=== PATIENT | female | born 1950 | race Caucasian/White ===

== ENCOUNTER 2018-10-14 17:50 | Inpatient (IN) ==
[2018-10-14 19:06] LABS: Hematocrit 35.8 % (37.0-47.0); Hemoglobin 11.5 gm/dL (12.5-16.0); Mean Cell Volume 99.7 fl (78-100); Mean Corpuscular Hgb Conc 32.1 g/dl (32-36); Mean Platelet Volume 10.5 fl (8-12.5); Neutrophil # 4.1 K/mm3 (1.3-6.0); Neutrophil % 71.4 % (42-75.0); Platelet Count 206 K/mm3 (150-450); Red Blood Count 3.59 M/mm3 (4.2-5.4); Red Cell Distribution Width 13.4 % (11.5-14.0); White Blood Count 5.8 K/mm3 (4.0-10.5)
[2018-10-14 19:47] LABS: BUN/Creatinine Ratio 20.1 (9.0-21.6); Potassium 4.4 mmol/L (3.4-4.6)
[2018-10-14 19:48] LABS: Albumin * 3.6 gm/dl (3.4-5.0); Anion Gap 10.6 mmol/L (6.8-13.8); Bilirubin, Total 0.1 mg/dL (0.0-1.1); Ca. Corrected For Albumin 9.6 mg/dL (8.4-10.2); Calcium * 9.6 mg/dL (7.9-10.9); Carbon Dioxide 30.8 mmol/L (24-32.6)
--- NOTE | 2018-10-14 20:01 | ERNOTE ---
Neuro HPI ER Record Date of Service: 10/14/18 Presenting Symptoms: confusion Time Seen by Provider: 10/14/18 18:29 Source: patient, family, RN notes reviewed Exam Limitations: no limitations Immunizations: IMMUNIZATION HX Immunizations Up to Date Yes History of Influenza Vaccine No Hx Pneumococcal Vaccination Yes Allergies/Adverse Reactions: Allergies Allergy/AdvReac Type Severity Reaction Status Date / Time penicillin V potassium Allergy Severe breathing Verified 10/14/18 18:23 [From Pen-Vee K] issues Sulfa (Sulfonamide Allergy Severe Verified 10/14/18 18:23 Antibiotics) [Sulfa(Sulfonamide Antibiotics)] azithromycin Allergy Intermediate breathing Verified 10/14/18 18:23 issues sucralfate Allergy Shortness Verified 10/14/18 18:23 of Breath sulfamethoxazole Allergy Unknown Verified 10/14/18 18:23 [From Bactrim] trimethoprim [From Bactrim] Allergy Unknown Verified 10/14/18 18:23 aspirin AdvReac GI Upset Verified 10/14/18 18:23 Home Medications: HOME MEDICATIONS caffeine 200 mg tablet 200 mg PO DAILY tab 03/29/18 [Last Taken Unknown] calcium carbonate 600 mg (1,500 mg)-vitamin D3 400 unit tablet 2 tab PO DAILY tab 03/29/18 [Last Taken Unknown] echinacea 380 mg capsule 380 mg PO DAILY 03/29/18 [Last Taken Unknown] fexofenadine 180 mg tablet 180 mg PO DAILY 03/29/18 [Last Taken Unknown] ipratropium-albuterol 18 mcg-103 mcg/actuation aerosol inhaler 2 spray IH QID 03/29/18 [Last Taken Unknown] levothyroxine 50 mcg tablet 50 mcg PO DAILY #90 tab 07/01/18 [Last Taken Unknown] alprazolam 0.5 mg tablet 0.5 mg PO TID PRN #90 tab 07/09/18 [Last Taken Unknown] mirtazapine 7.5 mg tablet 7.5 mg PO HS PRN #30 tab 07/09/18 [Last Taken Unknown] losartan 100 mg tablet 50 mg PO DAILY #45 tab 07/20/18 [Last Taken Unknown] simvastatin 20 mg tablet 20 mg PO HS #90 tab 07/20/18 [Last Taken Unknown] metoprolol succinate ER 100 mg tablet,extended release 24 hr 100 mg PO DAILY #90 tab 07/21/18 [Last Taken Unknown] albuterol sulfate HFA 90 mcg/actuation aerosol inhaler 1 puff IH Q6H PRN #18 g 09/10/18 [Last Taken Unknown] fluticasone 110 mcg/actuation HFA aerosol inhaler 1 puff IH BID #12 g 09/10/18 [Last Taken Unknown] hydrocodone 5 mg-acetaminophen 325 mg tablet 1 tab PO PRN PRN #30 tab 09/10/18 [Last Taken Unknown] - Pain Score Pain Score #1 Pain Score: 0 - History of Present Illness Narrative: The patient is a 68 year old female who presents for difficulty with speech and confusion which has been present since 1200. There are no associated symptoms. The patient denies pain. There are no alleviating factors. There are no aggravating factors. Previous treatments have included: none. The past medical history includes: anxiety, asthma, chronic pain, depression, GERD, HTN, HLD, hypothyroid and migraine. The social history is positive for former smoker. The patient has had no ill contacts. Patient's sister called EMS after she was talking on the phone and her sister was unable to verbally communicate. Patient upon arrival during triage having difficulty to verbalize. Upon assessment patient appears resolved with slight garbled speech. Review of Systems - Review of Systems Constitutional: Present: no symptoms reported. Absent: recent illness, fever, fatigue EYE: Present: no symptoms reported ENT: Present: no symptoms reported. Absent: ear pain, nasal drainage, sore throat Respiratory: Present: no symptoms reported. Absent: shortness of breath, cough Cardiology: Present: no symptoms reported. Absent: chest pain Gastrointestinal/Abdominal: Present: no symptoms reported. Absent: nausea, vomiting, diarrhea, abdominal pain Genitourinary: Present: no symptoms reported. Absent: dysuria Musculoskeletal: Present: no symptoms reported Skin: Present: no symptoms reported Neurological: Present: no symptoms reported Endocrine: Present: no symptoms reported Hematologic/Lymphatic: Present: no symptoms reported Psych: Present: no symptoms reported All Other Systems: All systems neg except as marked Medical History (Last Reviewed 10/14/18 @ 20:46 by PRAKASH Sahu) Major depression (Chronic) Generalized anxiety disorder (Chronic) Abdominal pain, generalized Anxiety disorder Asthma Benign breast cyst in female Bronchitis Chronic pain syndrome Depression Gallbladder disorder Gastroesophageal reflux Headache Heart murmur Hyperlipidemia Hypertension Hypothyroidism Migraine Peptic ulcer disease Shortness of breath Vertigo, central Chest pain UTI (urinary tract infection) Surgical History: Surgical History (Last Reviewed 10/14/18 @ 20:46 by PRAKASH Sahu) History of appendectomy Onset Date: Unknown History of tonsillectomy Onset Date: Unknown Family History: Family History (Last Reviewed 10/14/18 @ 20:46 by PRAKASH Sahu) Father Cancer Mother Hypertension Heart disease COPD (chronic obstructive pulmonary disease) Social History: Preferred Language Setswana Smoking Status Former smoker Psych History Hx of Anxiety,Hx of Depression (Last Updated 09/23/18 @ 16:24 by Rianna Rain MD) No Social History Section defined Physical Exam - Physical Exam General Appearance: Present: wd/wn, alert, no apparent distress Head Exam: Present: normal inspection, no evidence of injury Eye Exam: Normal inspection: bilateral, PERRL: bilateral, EOMI: bilateral Neck: Present: normal inspection Respiratory: Present: normal breath sounds, no accessory muscle use, lungs clear Cardiovascular/Chest: Present: regular rate, rhythm, no murmur Peripheral Pulses: N=norm/S=strong/W=weak/B=bound/A=absent: Radial (R): Normal Gastrointestinal/Abdominal: Present: normal bowel sounds, nontender, nondistended, soft, no organomegaly Neurological Exam: Present: oriented, normal mood/affect, no motor/sensory deficits, 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-XII nml as tested, normal cerebellar test, other - right upper lip appears swollen, no facial droop, speech slight garbled Skin Exam: Present: normal color, warm/dry Baljit Coma Scale - Assess Eye Opening: Spontaneous Motor: Obeys Commands Verbal: Oriented - Total Coma Scale Total: 15 Initial Stroke Assessment - NIH Stroke Scale Level of Consciousness: Alert LOC Questions (Year and Age): Answers both correctly LOC Commands (open/close eyes/fist): Performs both correctly Lateral Gaze Paresis: None Visual Field Loss: No visual loss Facial Palsy: Normal movement Right Arm Motor (10 sec hold): No drift Left Arm Motor (10 sec hold): No drift Right Leg Motor (5 sec hold): No drift Left Leg Motor (5 sec hold): No drift Limb Ataxia (finger/nose heel/abdi): Absent Sensory Loss (pinprick arms/legs/face): No sensory loss Language Aphasia (description/naming/reading): No aphasia; normal Dysarthria (speech clarity): Slurring, intelligeble Neglect Inattention (visual/tactile/auditory/spatial/person): No neglect Initial Stroke Scale Score:: 1 Progress - Date and Time Seen: Date and Time: 10/14/18 21:31 Patient remains to have no neuro deficits and clear speech. Discussed case with and will admit for observation due to TIA. Patient lives alone. - Results and Orders Patient's Lab Results:: I have reviewed the patient's lab results. - Vital Signs Patient's Vital Signs:: I have reviewed the patient's vital signs. Vital Signs: Vital Signs 10/14/18 18:21 10/14/18 18:57 10/14/18 19:48 Temperature 36.4 C 36.8 C 36.5 C Pulse Rate 70 69 Respiratory Rate 15 16 18 Blood Pressure 188/68 H 200/69 H O2 Sat by Pulse Oximetry 97 97 99 - EKG EKG #1 EKG: NSR EKG read: Reviewed by me - X-Ray X-Ray #1 X-Ray: chest Interpretation: Reviewed by me X-ray Comments: No acute cardiopulmonary abnormalities. Reviewed with . - Progress/Reassessment Chief Complaint: Altered Mental Status Progress:: Improved Departure Clinical Impression: TIA (transient ischemic attack) - Departure Disposition: Still a patient Condition: Good
[2018-10-14 20:27] LABS: Partial Thrombolplastin Time 23.5 Seconds (24-32)
[2018-10-14 21:28] LABS: Urine Bilirubin Negative (NEGATIVE); Urine Blood 25 /ul (NEGATIVE); Urine Ketone Negative (NEGATIVE); Urine Nitrite Negative (NEGATIVE); Urine Protein Negative (NEGATIVE); Urine Urobilinogen Normal (NORMAL)
[2018-10-14 21:43] LABS: Urine Appearance Clear (CLEAR); Urine Bacteria None Seen; Urine Color Pale Yellow; Urine RBC None Seen /hpf (0-5); Urine WBC TRACE /hpf (0-5)
[2018-10-14] MEDS ORDERED: ALBUTEROL SULFATE 200 PUFF INHALER IH PRN (21:53)
[2018-10-14] MEDS: ALBUTEROL SULFATE/IPRATROPIUM 3 ML NEBU IH SCH (22:31)
[2018-10-14] MEDS: BUDESONIDE 0.5 MG/2 ML VIAL.NEB IH SCH (22:31)
[2018-10-14] MEDS: SIMVASTATIN 20 MG TABLET PO SCH (22:54)
[2018-10-15] MEDS ORDERED: LOSARTAN POTASSIUM 50 MG TABLET ONE (01:04)
[2018-10-15] MEDS ORDERED: METOPROLOL SUCCINATE 50 MG TABLET.SA PO ONE (01:04)
[2018-10-15] MEDS ORDERED: METOPROLOL SUCCINATE 100 MG TABLET.SA PO ONE (01:05)
[2018-10-15] MEDS ORDERED: hydrALAZINE HCL 20 MG/ML VIAL IV ONE (04:40)
[2018-10-15] MEDS: ALBUTEROL SULFATE/IPRATROPIUM 3 ML NEBU IH SCH ×4 (06:05→18:33)
[2018-10-15] MEDS: BUDESONIDE 0.5 MG/2 ML VIAL.NEB IH SCH ×2 (06:14→18:34)
[2018-10-15] MEDS: LEVOTHYROXINE SODIUM 50 MCG TABLET PO SCH (06:51)
[2018-10-15] MEDS ORDERED: ALBUTEROL SULFATE 2.5 MG/0.5 ML VIAL.NEB IH PRN (07:00)
[2018-10-15] MEDS ORDERED: MIRTAZAPINE 15 MG TABLET PO PRN (07:08)
[2018-10-15] MEDS ORDERED: CLOPIDOGREL BISULFATE 75 MG TABLET PO ONE (07:09)
[2018-10-15] MEDS ORDERED: ACETAMINOPHEN 325 MG TABLET PO PRN (07:52)
--- NOTE | 2018-10-15 07:55 | HP ---
Chief Complaint - Chief Complaint Date of Service: 10/15/18 Time of Service: 07:54 Chief Complaint: garbled speech History of Present Illness: Lamar Ashford, is a 68-year-old white female, with past medical history of hypertension, hyperlipidemia,, hypothyroidism, asthma who was admitted on 10/14/13 because of difficulty of speech and confusion. The patient was in her usual self until about noontime on the day of admission who was noticed by her sister, who she was talking on the phone, to be having difficulty communicating with her verbally. EMS was called and upon arrival the patient was having difficulty of communicating with thme. In the ED she was having some garbled speech which eventually resolved. Her head CT scan showed no acute intracranial process except for mild chronic ischemic changes and mild cerebral volume loss. She was then admitted for observation. She cannot tolerate aspirin due to severe GI upset. She is currently awake alert oriented 3 and eating breakfast without choking. Her speech is back to normal. Medical History (Last Reviewed 10/14/18 @ 21:51 by Catrina Patton RN) Major depression (Chronic) Generalized anxiety disorder (Chronic) Abdominal pain, generalized Anxiety disorder Asthma Benign breast cyst in female Bronchitis Chronic pain syndrome Depression Gallbladder disorder Gastroesophageal reflux Headache Heart murmur Hyperlipidemia Hypertension Hypothyroidism Migraine Peptic ulcer disease Shortness of breath Vertigo, central Chest pain UTI (urinary tract infection) Surgical History: Surgical History (Last Reviewed 10/14/18 @ 21:51 by Catrina Patton RN) History of appendectomy Onset Date: Unknown History of tonsillectomy Onset Date: Unknown Family History: Family History (Last Reviewed 10/14/18 @ 21:51 by Catrina Patton RN) Father Cancer Mother Hypertension Heart disease COPD (chronic obstructive pulmonary disease) Social History: Patient Lives/Resources Home Utilized Preferred Language Croatian Do you have any zoroastrianism or No cultural preference? Smoking Status Former smoker Have you smoked in the past 12 No months Do you dip or chew tobacco No Psych History Hx of Anxiety,Hx of Depression (Last Updated 09/23/18 @ 16:24 by Rianna Rain MD) No Social History Section defined Review Of Systems (GEN) - Review of Systems Generalized/Overall Review: Absent: Weakness, Chills, Fever EENTM: Absent: Blurred Vision Respiratory: Absent: Cough, Shortness of Breath Cardiac: Absent: Chest Pain, Edema, Palpitations Abdominal: Absent: Nausea, Vomiting Genitourinary: Absent: Urgency, Frequency Musculoskeletal: Present: Joint Pain Neurological: Present: Anxiety. Absent: Headache, Depressed Skin: Absent: Rash, Bruising Endocrine: Absent: Intolerance to Cold, Intolerance to Heat Immunizations: IMMUNIZATION HX Immunizations Up to Date Yes History of Influenza Vaccine No Hx Pneumococcal Vaccination Yes Allergies/Adverse Reactions: Allergies Allergy/AdvReac Type Severity Reaction Status Date / Time penicillin V potassium Allergy Severe breathing Verified 10/14/18 18:23 [From Pen-Vee K] issues Sulfa (Sulfonamide Allergy Severe Verified 10/14/18 18:23 Antibiotics) [Sulfa(Sulfonamide Antibiotics)] azithromycin Allergy Intermediate breathing Verified 10/14/18 18:23 issues sucralfate Allergy Shortness Verified 10/14/18 18:23 of Breath sulfamethoxazole Allergy Unknown Verified 10/14/18 18:23 [From Bactrim] trimethoprim [From Bactrim] Allergy Unknown Verified 10/14/18 18:23 aspirin AdvReac GI Upset Verified 10/14/18 18:23 Home Medications: HOME MEDICATIONS caffeine 200 mg tablet 200 mg PO DAILY tab 03/29/18 [Last Taken Unknown] calcium carbonate 600 mg (1,500 mg)-vitamin D3 400 unit tablet 2 tab PO DAILY tab 03/29/18 [Last Taken Unknown] echinacea 380 mg capsule 380 mg PO DAILY 03/29/18 [Last Taken Unknown] fexofenadine 180 mg tablet 180 mg PO DAILY 03/29/18 [Last Taken Unknown] ipratropium-albuterol 18 mcg-103 mcg/actuation aerosol inhaler 2 spray IH QID 03/29/18 [Last Taken Unknown] levothyroxine 50 mcg tablet 50 mcg PO DAILY #90 tab 07/01/18 [Last Taken Unknown] alprazolam 0.5 mg tablet 0.5 mg PO TID PRN #90 tab 07/09/18 [Last Taken Unknown] mirtazapine 7.5 mg tablet 7.5 mg PO HS PRN #30 tab 07/09/18 [Last Taken Unknown] losartan 100 mg tablet 50 mg PO DAILY #45 tab 07/20/18 [Last Taken Unknown] simvastatin 20 mg tablet 20 mg PO HS #90 tab 07/20/18 [Last Taken Unknown] metoprolol succinate ER 100 mg tablet,extended release 24 hr 100 mg PO DAILY #90 tab 07/21/18 [Last Taken Unknown] albuterol sulfate HFA 90 mcg/actuation aerosol inhaler 1 puff IH Q6H PRN #18 g 09/10/18 [Last Taken Unknown] fluticasone 110 mcg/actuation HFA aerosol inhaler 1 puff IH BID #12 g 09/10/18 [Last Taken Unknown] hydrocodone 5 mg-acetaminophen 325 mg tablet 1 tab PO PRN PRN #30 tab 09/10/18 [Last Taken Unknown] Exam - Exam Vital Signs: Vital Signs - Last Taken Temp 36.9 C 10/15/18 05:00 Pulse 72 10/15/18 06:14 Resp 20 10/15/18 06:14 BP 198/78 H 10/15/18 05:00 Pulse Ox 99 10/15/18 06:05 Constitutional: Present: Alert, Oriented x3, Cooperative ENT Exam: Present: hearing grossly normal Eye Exam: bilateral eye: normal inspection, PERRL, EOMI Neck: Present: supple Respiratory: Present: decreased breath sounds, No rales, No wheezing Cardiovascular/Chest: Present: regular rate, rhythm, no JVD, no murmur Abdomen: Present: Normal bowel sounds, soft, nontender, nondistended Extremity: Present: no pedal edema, no calf tenderness Neurologic: Present: semiconductor packages tester II-XII nml as tested, no motor/sensory deficits, oriented x 3 Diagnostic Studies: Abnormal Lab Results 10/14/18 10/14/18 10/14/18 Range/Units 18:45 18:45 18:45 RBC 3.59 L (4.2-5.4) M/mm3 Hgb 11.5 L (12.5-16.0) gm/dL Hct 35.8 L (37.0-47.0) % MCH 32.0 H (27-31) pg Lymphocytes % 18.3 L (20-51) % Lymphocytes # 1.06 L (1.5-3.5) k/mm3 ESR 56 H (0-15) mm/hr PTT ([place]) 23.5 L (24-32) Seconds Sodium (132-142) mmol/L Plasma Sodium (130-142) mmol/L BUN (3-23) mg/dL Est GFR (Non-Af Amer) (60-130) mL/min Urine Blood (NEGATIVE) /ul Ur Leukocyte Esterase (NEGATIVE) /ul Urine WBC (0-5) /hpf 10/14/18 10/14/18 Range/Units 18:45 21:22 RBC (4.2-5.4) M/mm3 Hgb (12.5-16.0) gm/dL Hct (37.0-47.0) % MCH (27-31) pg Lymphocytes % (20-51) % Lymphocytes # (1.5-3.5) k/mm3 ESR (0-15) mm/hr PTT ([place]) (24-32) Seconds Sodium 143 H (132-142) mmol/L Plasma Sodium 143 H (130-142) mmol/L BUN 28 H (3-23) mg/dL Est GFR (Non-Af Amer) 40 L (60-130) mL/min Urine Blood 25 H (NEGATIVE) /ul Ur Leukocyte Esterase 25 H (NEGATIVE) /ul Urine WBC Trace H (0-5) /hpf Laboratory Results WBC 5.8 K/mm3 (4.0-10.5) 10/14/18 18:45 RBC 3.59 M/mm3 (4.2-5.4) L 10/14/18 18:45 Hgb 11.5 gm/dL (12.5-16.0) L 10/14/18 18:45 Hct 35.8 % (37.0-47.0) L 10/14/18 18:45 MCV 99.7 fl (78-100) 10/14/18 18:45 MCH 32.0 pg (27-31) H 10/14/18 18:45 MCHC 32.1 g/dl (32-36) 10/14/18 18:45 RDW 13.4 % (11.5-14.0) 10/14/18 18:45 Plt Count 206 K/mm3 (150-450) 10/14/18 18:45 MPV 10.5 fl (8-12.5) 10/14/18 18:45 Immature Gran % (Auto) 0.30 % (0.001-0.429) 10/14/18 18:45 Immature Gran # (Auto) 0.02 K/mm3 (0.000-0.0310) 10/14/18 18:45 Neutrophils % 71.4 % (42-75.0) 10/14/18 18:45 Lymphocytes % 18.3 % (20-51) L 10/14/18 18:45 Monocytes % 7.6 % (0.0-9) 10/14/18 18:45 Eosinophils % 2.1 % (0.0-3.0) 10/14/18 18:45 Basophils % 0.3 % (0.0-1.0) 10/14/18 18:45 Nucleated RBC % 0.0 k/mm3 (0-1) 10/14/18 18:45 Neutrophils # 4.1 K/mm3 (1.3-6.0) 10/14/18 18:45 Lymphocytes # 1.06 k/mm3 (1.5-3.5) L 10/14/18 18:45 Monocytes # 0.4 k/mm3 (0.0-1.0) 10/14/18 18:45 Eosinophils # 0.1 k/mm3 (0.0-0.7) 10/14/18 18:45 Absolute Basophils 0.0 k/mm3 (0.0-0.1) 10/14/18 18:45 ESR 56 mm/hr (0-15) H 10/14/18 18:45 PT 10.0 Seconds (9.0-11.0) 10/14/18 18:45 INR (Anticoag Therapy) 1.00 INR (0.90-1.10) 10/14/18 18:45 PTT ([place]) 23.5 Seconds (24-32) L 10/14/18 18:45 Sodium 143 mmol/L (132-142) H 10/14/18 18:45 Plasma Sodium 143 mmol/L (130-142) H 10/14/18 18:45 Potassium 4.4 mmol/L (3.4-4.6) 10/14/18 18:45 Chloride 106 mmol/L (97-106) 10/14/18 18:45 Carbon Dioxide 30.8 mmol/L (24-32.6) 10/14/18 18:45 Anion Gap 10.6 mmol/L (6.8-13.8) 10/14/18 18:45 BUN 28 mg/dL (3-23) H 10/14/18 18:45 Creatinine 1.39 mg/dL (0.4-1.4) 10/14/18 18:45 Est GFR (Non-Af Amer) 40 mL/min (60-130) L 10/14/18 18:45 BUN/Creatinine Ratio 20.1 (9.0-21.6) 10/14/18 18:45 Random Glucose 102 mg/dL (70-110) 10/14/18 18:45 Calcium 9.6 mg/dL (7.9-10.9) 10/14/18 18:45 Calcium Adj for Albumin 9.6 mg/dL (8.4-10.2) 10/14/18 18:45 Total Bilirubin 0.1 mg/dL (0.0-1.1) 10/14/18 18:45 AST 19 U/L (0-48) 10/14/18 18:45 ALT 19 U/L (19-67) 10/14/18 18:45 Alkaline Phosphatase 117 U/L (50-170) 10/14/18 18:45 Total Protein 8.0 gm/dL (6.2-8.2) 10/14/18 18:45 Albumin 3.6 gm/dl (3.4-5.0) 10/14/18 18:45 Urine Color Pale yellow 10/14/18 21:22 Urine Appearance Clear (CLEAR) 10/14/18 21: Urine pH 6.0 pH (5.0-7.0) 10/14/18 21:22 Ur Specific [place] 1.020 SP.GR. (1.005-1.010) 10/14/18 21:22 Urine Protein Negative mg/dL (NEGATIVE) 10/14/18 21:22 Urine Glucose (UA) Negative mg/dL (NEGATIVE) 10/14/18 21:22 Urine Ketones Negative mg/dL (NEGATIVE) 10/14/18 21:22 Urine Blood 25 /ul (NEGATIVE) H 10/14/18 21:22 Urine Nitrate Negative (NEGATIVE) 10/14/18 21: Urine Bilirubin Negative mg/dl (NEGATIVE) 10/14/18 21:22 Urine Urobilinogen Normal EU/dl (NORMAL) 10/14/18 21:22 Ur Leukocyte Esterase 25 /ul (NEGATIVE) H 10/14/18 21:22 Urine RBC None seen /hpf (0-5) 02/13/19 21:22 Urine WBC Trace /hpf (0-5) H 10/14/18 21:22 Ur Epithelial Cells Trace /hpf (0-5) 10/14/18 21:22 Urine Bacteria None seen (NONE) 10/14/18 21:22 Urine Culture Comments Culture to follow 10/14/18 21:22 Assessment/Plan - Narrative Narrative: Will continue with her home medications. - Assessment/Plan (1) TIA (transient ischemic attack) Assessment: will give her clopidrogel for now and get an MRI w/o contrast for her TIA like symptoms. Will do CUS and ECHO with bubble study on outpatient basis. Problem: Acute (2) Hypothyroidism Problem: Chronic Qualifiers: Hypothyroidism type: acquired Qualified Code(s): E03.9 - Hypothyroidism, unspecified (3) Hyperlipidemia Problem: Chronic Qualifiers: Hyperlipidemia type: mixed hyperlipidemia Qualified Code(s): E78.2 - Mixed hyperlipidemia (4) Problem: Chronic Qualifiers: Esophagitis presence: without esophagitis Qualified Code(s): K21.9 - Gastro-esophageal reflux disease without esophagitis (5) Generalized anxiety disorder Problem: Chronic
[2018-10-15] MEDS: ALPRAZolam 0.5 MG TABLET PO PRN ×2 (08:20→21:11)
[2018-10-15] MEDS ORDERED: LOSARTAN POTASSIUM 50 MG TABLET PO SCH ×2 (09:00→15:00)
[2018-10-15] MEDS ORDERED: HYDROcodone/ACETAMINOPHEN 1 EACH TABLET PO PRN (11:56)
[2018-10-15] MEDS ORDERED: ONDANSETRON HCL/PF 2 MG/ML VIAL IV ONE (11:57)
[2018-10-15] MEDS ORDERED: LORazepam 1 MG TABLET PO ONE (12:30)
[2018-10-15] MEDS ORDERED: LOSARTAN POTASSIUM 50 MG TABLET PO ONE ×2 (14:59→15:15)
--- NOTE | 2018-10-15 15:16 | PN ---
Progess Note - Interim Date: 10/15/18 Time: 15:15 Narrative: 10/15/18 15:15 MRI shows acute to subacute frontoparietal infarcts. will continue with Clopidrogel and refer to PT/OT/st for eval and treat. will transfer her to acute status. will do CUS and Echo with bubble study.
[2018-10-15] MEDS: SIMVASTATIN 20 MG TABLET PO SCH (21:11)
[2018-10-16] MEDS ORDERED: LABETALOL HCL 5 MG/ML VIAL IV ONE (00:44)
[2018-10-16] MEDS ORDERED: amLODIPine BESYLATE 5 MG TABLET PO SCH (04:25)
[2018-10-16] MEDS ORDERED: METOPROLOL SUCCINATE 50 MG TABLET.SA PO ONE (04:38)
[2018-10-16] MEDS: LOSARTAN POTASSIUM 50 MG TABLET PO SCH ×3 (04:41→20:38)
[2018-10-16] MEDS: METOPROLOL SUCCINATE 100 MG TABLET.SA PO SCH ×2 (04:43→08:03)
[2018-10-16] MEDS: ALBUTEROL SULFATE/IPRATROPIUM 3 ML NEBU IH SCH ×5 (06:07→18:33)
[2018-10-16] MEDS: BUDESONIDE 0.5 MG/2 ML VIAL.NEB IH SCH ×3 (06:07→18:33)
[2018-10-16] MEDS: LEVOTHYROXINE SODIUM 50 MCG TABLET PO SCH (06:55)
--- NOTE | 2018-10-16 08:16 | PN ---
Subjective - Date and Time Seen Date: 10/16/18 Time: 08:04 Subjective Narrative: Patient NAD. Afebrile. shallow right nasolabial fold more prominent this morning. still with delay in answering questions but with sume slurring but appropriae and understable. Objective - Review of Systems Generalized/Overall Review: Denies: Chills, Fever EENTM: Denies: Blurred Vision Respiratory: Denies: Cough, Shortness of Breath Cardiac: Denies: Edema, Palpitations Abdominal: Denies: Nausea, Vomiting Genitourinary Symptoms: Denies: Urgency, Frequency Musculoskeletal Complaints: Reports: Joint Pain Neurological: Denies: Headache Skin: Denies: Rash, Bruising Endocrine: Denies: Intolerance to Cold, Intolerance to Heat - Vitals Vitals: Last Vital Signs Temp 36.3 C 10/16/18 06:20 Pulse 80 10/16/18 06:20 Resp 18 10/16/18 06:20 BP 137/72 10/16/18 06:20 Pulse Ox 99 10/16/18 06:20 - Exam Constitutional: Present: Alert, Oriented x3, Cooperative ENT Exam: Present: hearing grossly normal Neck: Present: supple Cardiovascular/Chest: Present: regular rate, rhythm, no JVD, no murmur Abdomen: Present: Normal bowel sounds, soft, nontender, nondistended Extremity: Present: no pedal edema, no calf tenderness Neurologic: Present: no motor/sensory deficits - no gross deficit, oriented x 3, facial droop Assessment/Plan Plan Narrative: continue with other home medications. - Problems/Diagnosis (1) Acute CVA (cerebrovascular accident) Problem: Acute Narrative: to subacute left frontoparietal lobe. for PT/OT/ST eval and tx today. for Echo with bubble study / CUS today. continue with plavix for now. NSR on tele. start Crestor. ADDENDUM: CUS - no hemodymanically significant stenosis. (2) Hypertension Problem: Chronic Qualifiers: Hypertension type: essential hypertension Qualified Code(s): I10 - Essential (primary) hypertension Narrative: on Metoprolol and Losartan. amlodipine added. (3) Hypothyroidism Problem: Chronic Qualifiers: Hypothyroidism type: acquired Qualified Code(s): E03.9 - Hypothyroidism, unspecified Narrative: on levothyroxine (4) Hyperlipidemia Problem: Chronic Qualifiers: Hyperlipidemia type: mixed hyperlipidemia Qualified Code(s): E78.2 - Mixed hyperlipidemia Narrative: will change simvastatin to atorvastatin o Rosuvastatin. (5) Problem: Chronic Qualifiers: Esophagitis presence: without esophagitis Qualified Code(s): K21.9 - Gastro-esophageal reflux disease without esophagitis (6) Generalized anxiety disorder Problem: Chronic
[2018-10-16] MEDS: CLOPIDOGREL BISULFATE 75 MG TABLET PO SCH (09:12)
[2018-10-16] MEDS: ENOXAPARIN SODIUM 40 MG/0.4 ML SYRG SC SCH (11:09)
[2018-10-16] MEDS: ALPRAZolam 0.5 MG TABLET PO PRN (20:38)
[2018-10-16] MEDS ORDERED: ROSUVASTATIN CALCIUM 10 MG TABLET PO SCH (21:00)
[2018-10-17] MEDS: BUDESONIDE 0.5 MG/2 ML VIAL.NEB IH SCH ×2 (06:08→18:05)
[2018-10-17] MEDS: ALBUTEROL SULFATE/IPRATROPIUM 3 ML NEBU IH SCH ×4 (06:09→18:05)
[2018-10-17] MEDS: LEVOTHYROXINE SODIUM 50 MCG TABLET PO SCH (06:52)
[2018-10-17] MEDS: LOSARTAN POTASSIUM 50 MG TABLET PO SCH ×2 (08:07→20:10)
[2018-10-17] MEDS: CLOPIDOGREL BISULFATE 75 MG TABLET PO SCH (08:08)
[2018-10-17] MEDS: METOPROLOL SUCCINATE 100 MG TABLET.SA PO SCH (08:08)
[2018-10-17] MEDS ORDERED: ALBUTEROL SULFATE 2.5 MG/0.5 ML VIAL.NEB IH PRN (08:15)
[2018-10-17] MEDS ORDERED: amLODIPine BESYLATE 5 MG TABLET PO SCH (09:00)
[2018-10-17] MEDS: ENOXAPARIN SODIUM 40 MG/0.4 ML SYRG SC SCH (09:55)
--- NOTE | 2018-10-17 10:03 | PN ---
Subjective - Date and Time Seen Date: 10/17/18 Time: 09:52 Subjective Narrative: Patient did well overnight without any complications. She has been very compliant with speech therapy and is seeing significant improvement in her verbalization. She denies any other neurological symptoms at this time. No acute events overnight and her blood pressure was better controlled once adjusting her losartan. Objective - Review of Systems Generalized/Overall Review: Denies: Weakness, Chills EENTM: Denies: Blurred Vision, Double Vision Respiratory: Reports: No Symptoms Reported Cardiac: Reports: No Symptoms Reported Abdominal: Denies: Nausea, Vomiting Genitourinary Symptoms: Reports: No Symptoms Reported Musculoskeletal Complaints: Reports: No Symptoms Reported Neurological: Reports: Other - Trouble speaking. Denies: Headache, Numbness, Parasthesia Skin: Reports: No Symptoms Reported Endocrine: Reports: No Symptoms Reported - Vitals Vitals: Last Vital Signs Temp 36.8 C 10/17/18 06:55 Pulse 84 10/17/18 08:08 Resp 16 10/17/18 06:55 BP 146/73 10/17/18 08:08 Pulse Ox 95 10/17/18 06:55 - Exam Constitutional: Present: Alert, Oriented x3, Cooperative ENT Exam: Absent: nasal congestion, nasal drainage Neck: Present: non-tender, full range of motion, supple Respiratory: Present: chest non-tender, lungs clear, normal breath sounds Cardiovascular/Chest: Present: normal peripheral pulses, regular rate, rhythm Abdomen: Present: Normal bowel sounds, soft, nontender Skin Exam: Present: normal color, warm/dry Neurologic: Present: residential solar consultant II-XII nml as tested - Some difficulty with tongue movement to the right, otherwise cranial nerves II through XII intact, alert, oriented x 3, facial droop, motor weakness - Minimal right hand weakness. Absent: sensory deficit Appearance: Present: appropriate appearance, appropriate insight Thoughts: Present: normal thought pattern, normal mood /affect Assessment/Plan Plan Narrative: Acute CVAimproving with current treatment. Continue Plavix, Crestor. Blood pr essure controlled with adjustment of losartan. Waiting for results of recent echo. Carotid artery ultrasound showed no significant carotid stenosis. Patient on mechanical soft diet for difficulty with verbalization. She is improving significantly with speech therapy, will continue. Patient waiting placement for short-term care on Thursday 10/19. Hypertensioncurrently blood pressure stable with adjustment of losartan as well as added amlodipine. We will continue to monitor. Hypothyroidismcontinue levothyroxine Hyperlipidemiacontinue Crestor Generalized anxiety disorderno changes to treatment plan. - Problems/Diagnosis (1) Acute CVA (cerebrovascular accident) Problem: Acute (2) Hypertension Problem: Chronic Qualifiers: Hypertension type: essential hypertension Qualified Code(s): I10 - Essential (primary) hypertension (3) Hypothyroidism Problem: Chronic Qualifiers: Hypothyroidism type: acquired Qualified Code(s): E03.9 - Hypothyroidism, unspecified (4) Hyperlipidemia Problem: Chronic Qualifiers: Hyperlipidemia type: mixed hyperlipidemia Qualified Code(s): E78.2 - Mixed hyperlipidemia (5) Generalized anxiety disorder Problem: Chronic
[2018-10-17] MEDS ORDERED: amLODIPine BESYLATE 5 MG TABLET PO ONE (11:30)
[2018-10-17] MEDS ORDERED: hydrALAZINE HCL 20 MG/ML VIAL IV SCH (17:06)
[2018-10-17] MEDS: ROSUVASTATIN CALCIUM 20 MG TABLET PO SCH (20:10)
[2018-10-17] MEDS: ALPRAZolam 0.5 MG TABLET PO PRN (20:14)
[2018-10-17] MEDS: MAG HYDROX/ALUMINUM HYD/SIMETH 30 ML UDC PO PRN (23:40)
[2018-10-18] MEDS: ALBUTEROL SULFATE/IPRATROPIUM 3 ML NEBU IH SCH ×4 (06:18→17:59)
[2018-10-18] MEDS: BUDESONIDE 0.5 MG/2 ML VIAL.NEB IH SCH ×2 (06:18→18:00)
[2018-10-18] MEDS: LEVOTHYROXINE SODIUM 50 MCG TABLET PO SCH (06:20)
[2018-10-18] MEDS: ENOXAPARIN SODIUM 40 MG/0.4 ML SYRG SC SCH (09:32)
[2018-10-18] MEDS: LOSARTAN POTASSIUM 50 MG TABLET PO SCH ×2 (09:32→20:40)
[2018-10-18] MEDS: METOPROLOL SUCCINATE 100 MG TABLET.SA PO SCH (09:32)
[2018-10-18] MEDS: CLOPIDOGREL BISULFATE 75 MG TABLET PO SCH (09:32)
[2018-10-18] MEDS: amLODIPine BESYLATE 10 MG TABLET PO SCH (09:32)
--- NOTE | 2018-10-18 16:38 | PN ---
Subjective - Date and Time Seen Date: 10/18/18 Time: 16:27 Subjective Narrative: Patient continues to do well overnight, slept well. She denies any adverse events. Blood pressure had ranged a little high since taken over her care, but she denies any symptoms. No headaches, chest pain, shortness of breath, or any other new neurological symptoms. After adjusting her medications her blood pressures been doing much better. She is doing well with speech therapy and feels like she is improving. She has no questions or concerns at this time. Objective - Review of Systems Generalized/Overall Review: Reports: Weakness - Right hand weakness. Denies: Chills, Fever EENTM: Denies: Blurred Vision, Double Vision Respiratory: Reports: No Symptoms Reported Cardiac: Reports: No Symptoms Reported Abdominal: Reports: No Symptoms Reported Genitourinary Symptoms: Reports: No Symptoms Reported Musculoskeletal Complaints: Reports: No Symptoms Reported Neurological: Reports: Other - Right hand weakness, right-sided facial droop Skin: Reports: No Symptoms Reported - Vitals Vitals: Last Vital Signs Temp 36.3 C 10/18/18 14:25 Pulse 69 10/18/18 14:25 Resp 14 10/18/18 14:25 BP 142/52 10/18/18 14:25 Pulse Ox 99 10/18/18 14:25 - Exam Constitutional: Present: Alert, Oriented x3, No distress ENT Exam: Present: hearing grossly normal Neck: Present: supple Respiratory: Present: chest non-tender, lungs clear Cardiovascular/Chest: Present: regular rate, rhythm Abdomen: Present: Normal bowel sounds, soft, nontender /Rectal: Present: Exam deferred Skin Exam: Present: normal color, warm/dry Neurologic: Present: alert, oriented x 3, abnormal bulk mail technician II-XII - Difficulty with tongue motion, facial droop, motor weakness - Right hand nurse school strength 4 out of 5, other - Difficulty speaking Appearance: Present: appropriate appearance, appropriate insight Eye contact: Present: cooperative, good eye contact. Absent: normal speech Thoughts: Present: normal thought pattern, normal mood /affect Assessment/Plan Plan Narrative: Acute CVAimproving with current treatment. Continue Plavix, Crestor. Blood pressure better controlled with adjustment of losartan and amlodipine. She did require 1 dose of hydralazine IV.. Waiting for results of recent echo. Carotid artery ultrasound showed no significant carotid stenosis. Patient on mechanical soft diet for difficulty with verbalization. She continues to improve with speech therapy, no changes. Patient waiting placement for short-term care on Thursday 10/19. Hypertensionsee above. We will continue to monitor. Hypothyroidismcontinue levothyroxine Hyperlipidemiacontinue Crestor Generalized anxiety disorderno changes to treatment plan. Nurses will call with any questions or concerns. - Problems/Diagnosis (1) Acute CVA (cerebrovascular accident) Problem: Acute (2) Hypertension Problem: Chronic Qualifiers: Hypertension type: essential hypertension Qualified Code(s): I10 - Essential (primary) hypertension (3) Hypothyroidism Problem: Chronic Qualifiers: Hypothyroidism type: acquired Qualified Code(s): E03.9 - Hypothyroidism, unspecified (4) Hyperlipidemia Problem: Chronic Qualifiers: Hyperlipidemia type: mixed hyperlipidemia Qualified Code(s): E78.2 - Mixed hyperlipidemia (5) Generalized anxiety disorder Problem: Chronic
[2018-10-18] MEDS ORDERED: BENZOCAINE/MENTHOL 16 EACH BOX MM ONE (19:59)
[2018-10-18] MEDS: BENZOCAINE/MENTHOL 16 EACH BOX MM PRN ×2 (20:07→22:11)
[2018-10-18] MEDS: ROSUVASTATIN CALCIUM 20 MG TABLET PO SCH (20:40)
[2018-10-18] MEDS: ALPRAZolam 0.5 MG TABLET PO PRN (20:42)
[2018-10-18] MEDS: MAG HYDROX/ALUMINUM HYD/SIMETH 30 ML UDC PO PRN (21:31)
[2018-10-19] MEDS: BUDESONIDE 0.5 MG/2 ML VIAL.NEB IH SCH (06:07)
[2018-10-19] MEDS: ALBUTEROL SULFATE/IPRATROPIUM 3 ML NEBU IH SCH ×2 (06:07→10:16)
[2018-10-19] MEDS: LEVOTHYROXINE SODIUM 50 MCG TABLET PO SCH (06:33)
[2018-10-19 07:29] LABS: Hemoglobin 11.9 gm/dL (12.5-16.0); Mean Cell Volume 99.5 fl (78-100); Mean Corpuscular Hgb Conc 32.2 g/dl (32-36); Mean Platelet Volume 10.8 fl (8-12.5); Neutrophil # 3.9 K/mm3 (1.3-6.0); Neutrophil % 62.4 % (42-75.0); Platelet Count 224 K/mm3 (150-450); Red Blood Count 3.72 M/mm3 (4.2-5.4); Red Cell Distribution Width 13.7 % (11.5-14.0); White Blood Count 6.3 K/mm3 (4.0-10.5)
[2018-10-19 07:39] LABS: Anion Gap 13.9 mmol/L (6.8-13.8); BUN/Creatinine Ratio 15.8 (9.0-21.6); Calcium * 9.2 mg/dL (7.9-10.9); Carbon Dioxide 27.4 mmol/L (24-32.6); Estimated Creat Clear 28.3; Potassium 4.3 mmol/L (3.4-4.6)
--- NOTE | 2018-10-19 08:10 | DS ---
(1) Acute CVA (cerebrovascular accident) Diagnosis(s): left frontoparietal lobe Problem: Acute (2) Hypertension Problem: Chronic Qualifiers: Hypertension type: essential hypertension Qualified Code(s): I10 - Essential (primary) hypertension (3) Hypothyroidism Problem: Chronic Qualifiers: Hypothyroidism type: acquired Qualified Code(s): E03.9 - Hypothyroidism, unspecified (4) Hyperlipidemia Problem: Chronic Qualifiers: Hyperlipidemia type: mixed hyperlipidemia Qualified Code(s): E78.2 - Mixed hyperlipidemia (5) Problem: Chronic Qualifiers: Esophagitis presence: without esophagitis Qualified Code(s): K21.9 - Gastro-esophageal reflux disease without esophagitis (6) Generalized anxiety disorder Problem: Chronic Description of Stay: Lamar Ashford, is a 68-year-old white female, with past medical history of hypertension, hyperlipidemia,, hypothyroidism, asthma who was admitted on 10/14/13 because of difficulty of speech and confusion. The patient was in her usual self until about noontime on the day of admission who was noticed by her sister, who she was talking on the phone, to be having difficulty communicating with her verbally. EMS was called and upon arrival the patient was having difficulty of communicating with thme. In the ED she was having some garbled speech which eventually resolved. Her head CT scan showed no acute intracranial process except for mild chronic ischemic changes and mild cerebral volume loss. She cannot tolerate aspirin due to severe GI upset. She had some difficulty of speech and took some time to answer your questions. She had right facial droop and subtle weakness of her right side. She was started on on Plavix. Her losartan and Metoprolol were continued. Amlodipine was added. Her MRI showed acute to subacute left frontoparietal lobe infarct. Her CUS did not show hemodynamically significant stenosis. Her Echo showed a negative bubble study. She was referred to PT/OT/ST. PT recommended an in patient cardiac rehab and she is going to [facility]. Procedures Performed: none Results and Findings: Lab Pending Results 10/14/18 18:45: WBC 5.8, RBC 3.59 L, Hgb 11.5 L, Hct 35.8 L, MCV 99.7, MCH 32.0 H, MCHC 32.1, RDW 13.4, Plt Count 206, MPV 10.5, Immature Gran % (Auto) 0.30, Immature Gran # (Auto) 0.02, Neutrophils % 71.4, Lymphocytes % 18.3 L, Monocytes % 7.6, Eosinophils % 2.1, Basophils % 0.3, Nucleated RBC % 0.0, Neutrophils # 4.1, Lymphocytes # 1.06 L, Monocytes # 0.4, Eosinophils # 0.1, Absolute Basophils 0.0 10/14/18 18:45: ESR 56 H 10/14/18 18:45: PT 10.0, INR (Anticoag Therapy) 1.00, PTT (Wolfe) 23.5 L 10/14/18 18:45: Sodium 143 H, Plasma Sodium 143 H, Potassium 4.4, Chloride 106, Carbon Dioxide 30.8, Anion Gap 10.6, BUN 28 H, Creatinine 1.39, Est GFR (Non-Af Amer) 40 L, BUN/Creatinine Ratio 20.1, Random Glucose 102, Calcium 9.6, Calcium Adj for Albumin 9.6, Total Bilirubin 0.1, AST 19, ALT 19, Alkaline Phosphatase 117, Total Protein 8.0, Albumin 3.6 10/14/18 21:22: Urine Color Pale yellow, Urine Appearance Clear, Urine pH 6.0, Ur Specific Cedar 1.020, Urine Protein Negative, Urine Glucose (UA) Negative, Urine Ketones Negative, Urine Blood 25 H, Urine Nitrate Negative, Urine Bilirubin Negative, Urine Urobilinogen Normal, Ur Leukocyte Esterase 25 H, Urine RBC None seen, Urine WBC Trace H, Ur Epithelial Cells Trace, Urine Bacteria None seen, Urine Culture Comments Culture to follow 10/19/18 07:08: WBC 6.3, RBC 3.72 L, Hgb 11.9 L, Hct 37.0, MCV 99.5, MCH 32.0 H, MCHC 32.2, RDW 13.7, Plt Count 224, MPV 10.8, Immature Gran % (Auto) 0.30, Immature Gran # (Auto) 0.02, Neutrophils % 62.4, Lymphocytes % 25.3, Monocytes % 8.7, Eosinophils % 3.0, Basophils % 0.3, Nucleated RBC % 0.0, Neutrophils # 3.9, Lymphocytes # 1.59, Monocytes # 0.6, Eosinophils # 0.2, Absolute Basophils 0.0 10/19/18 07:08: Sodium 140, Plasma Sodium 140, Potassium 4.3, Chloride 103, Carbon Dioxide 27.4, Anion Gap 13.9 H, BUN 31 H, Creatinine 1.96 H D, Est GFR (Non-Af Amer) 27 L D, BUN/Creatinine Ratio 15.8, Random Glucose 103, Calcium 9.2 Discharge Location: [facility] Disposition: Inpatient Rehab Facility Condition: Good Discharge Activity: Activity as tolerated Discharge Diet: Low salt, Low fat/chol Referrals: Rianna Rain MD [Primary Care Provider] - Additional Patient Instructions (free text): -Please make TCM appointment unless [facility] discharge. Thank you! Tasneem @ [phone]. Please fax information to [facility] inpatient rehab upon discharge. Follow up with PCP in 2 weeks after discharge from [facility] rehab. Prescriptions (Any new or edited meds): Acetaminophen [Tylenol] 650 mg PO Q4H PRN #30 tab PRN Reason: Mild Pain (Pain Scale 1-3) Albuterol Sulfate/Ipratropium [Duoneb 2.5-0.5MG/3ML Soln] 3 ml INHALATION BID #1 nebu amLODIPine BESYLATE [Norvasc] 10 mg PO DAILY #30 tab Benzocaine/Menthol [Cepacol Sore Throat] 1 ea MM PRN PRN #1 box PRN Reason: Cough Rosuvastatin Calcium [Crestor] 20 mg PO HS #30 tab Complete Home Medications List: Complete Home Medication List: calcium carbonate 600 mg (1,500 mg)-vitamin D3 400 unit tablet 2 tab PO DAILY tab 03/29/18 fexofenadine 180 mg tablet 180 mg PO DAILY 03/29/18 levothyroxine 50 mcg tablet 50 mcg PO DAILY #90 tab 07/01/18 alprazolam 0.5 mg tablet 0.5 mg PO TID PRN #90 tab 07/09/18 mirtazapine 7.5 mg tablet 7.5 mg PO HS PRN #30 tab 07/09/18 losartan 100 mg tablet 50 mg PO DAILY #45 tab 07/20/18 metoprolol succinate ER 100 mg tablet,extended release 24 hr 100 mg PO DAILY #90 tab 07/21/18 albuterol sulfate HFA 90 mcg/actuation aerosol inhaler 1 puff IH Q6H PRN #18 g 09/10/18 fluticasone 110 mcg/actuation HFA aerosol inhaler 1 puff IH BID #12 g 09/10/18 hydrocodone 5 mg-acetaminophen 325 mg tablet 1 tab PO PRN PRN #30 tab 09/10/18 Acetaminophen [Tylenol] 650 mg PO Q4H PRN #30 tab 10/19/18 Albuterol Sulfate/Ipratropium [Duoneb 2.5-0.5MG/3ML Soln] 3 ml INHALATION BID #1 nebu 10/19/18 Benzocaine/Menthol [Cepacol Sore Throat] 1 ea MM PRN PRN #1 box 10/19/18 Clopidogrel Bisulfate [Plavix] 75 mg PO DAILY tab 10/19/18 Rosuvastatin Calcium [Crestor] 20 mg PO HS #30 tab 10/19/18 amLODIPine BESYLATE [Norvasc] 10 mg PO DAILY #30 tab 10/19/18
[2018-10-19] MEDS: CLOPIDOGREL BISULFATE 75 MG TABLET PO SCH (09:15)
[2018-10-19] MEDS: METOPROLOL SUCCINATE 100 MG TABLET.SA PO SCH (09:15)
[2018-10-19] MEDS: amLODIPine BESYLATE 10 MG TABLET PO SCH (09:15)
[2018-10-19] MEDS: LOSARTAN POTASSIUM 50 MG TABLET PO SCH (09:16)
[2018-10-19] MEDS: ENOXAPARIN SODIUM 40 MG/0.4 ML SYRG SC SCH (10:38)
[2018-10-19 11:56] VITALS: BP 157/68
[2018-10-19] MEDS: MAG HYDROX/ALUMINUM HYD/SIMETH 30 ML UDC PO PRN (12:03)
--- NOTE | 2018-10-19 15:13 | ECHO ---
This report is available in the EMR
== END 2018-10-19 12:15 | disposition short-term general hospital (02) | DRG 65 ==
LOC: ER 17:50 → MS 17:50
PROVIDERS: ADMIT Family Medicine; ATTEND Internal Medicine
CPT/HCPCS: 36415; 70450; 70553; 71020; 71046; 80048; 80053; 81001; 85025; 85610; 85652; 85730; 87077; 87086; 87186; 92522; 93005; 93306; 93880; 94640; 94664; 97110; 97112; 97116; 97162; 97165; 99285; A9576; J2405